=== PATIENT | female | born 1995 | race Caucasian/White ===

== ENCOUNTER 2025-05-10 23:49 | Emergency (ER) | payer BC, OTHER ==
[2025-05-10 23:55] VITALS: BP 115/65; PULSE 74; RESP 18; TEMP 98.1; BMI 39.0
[2025-05-11] MEDS ORDERED: KETOROLAC TROMETHAMINE 30 MG/1 ML VIAL ONE (00:23)
[2025-05-11] MEDS ORDERED: ACETAMINOPHEN 500 MG TABLET (FP) ONE (00:27)
[2025-05-11] MEDS: KETOROLAC TROMETHAMINE 30 MG/1 ML VIAL IM ONE (00:37)
[2025-05-11] MEDS: ACETAMINOPHEN 500 MG TABLET (FP) PO ONE ×2 (00:37)
== END 2025-05-11 00:47 | disposition home or self-care (01) ==
LOC: JER 23:49
PROC: 3E0233Z Introduction of Anti-inflammatory into Muscle, Percutaneous Approach (ICD-10-PCS; principal; 2025-05-10)
DX: O87.2 Hemorrhoids in the puerperium (principal); Z48.89 Encounter for other specified surgical aftercare
CPT/HCPCS: 99284-25